=== PATIENT | female | born 1935 | race Hispanic/Latino ===

== ENCOUNTER → 2024-04-29 | Outpatient (CLI) | payer OTHER, MEDICARE ==
[~2024-04-29] MED LIST: AEC81 PO; CLOT15CR5 TP; FISH1CAP17 PO; METF-527 PO; SIMV-43 PO
[2024-04-29 10:02] LABS: INR <= 0.93 (0.85-1.15); PROTHROMBIN TIME 10.3 SEC (9.6-11.6)
[2024-04-29 10:03] LABS: PARTIAL THROMBOPLASTIN TIME 25.5 SEC (26.3-35.5)
--- NOTE | 2024-04-29 10:30 | NUR ---
RE: LT SUBMANDIBULAR NECK BX IMAGES TAKEN AND REVIEWED BY DR Vincenzo JACOBSEN. NO MASS OR ENLARGED NODES SEEN AT THIS TIME AND PROCEDURE CANCELLED BY DR Vincenzo JACOBSEN. PATIENT AND GRANDDAUGHTER NOTIFIED OF PROCEDURE OUTCOME. BOTH VERBALIZED UNDERSTANDING AND PATIENT DISCHARGED VIA AMBULATION AT 1030.
--- NOTE | 2024-04-29 18:20 | HMCIMG ---
US SOFT TISSUE NECK HISTORY: LT SUBMANDIBULAR NODULE 2.1 X 1.9 X 1.4 CM TECHNIQUE: US SOFT TISSUE NECK. FINDINGS/IMPRESSION: Ultrasound evaluation of the left neck/submandibular region was performed. No soft tissue mass or cystic lesion was identified. Biopsy was not performed. Consider short-term follow-up ultrasound.
== END | disposition home or self-care (01) ==
LOC: RAH 09:05
PROVIDERS: ATTEND Otolaryngology Plastic Surgery within the Head & Neck
DX: R22.1 Localized swelling, mass and lump, neck (principal); Z86.2 Personal history of diseases of the blood and blood-forming organs and certain disorders involving the immune mechanism
CPT/HCPCS: 36415; 76536; 85610; 85730